=== PATIENT | female | born 1955 | race Caucasian/White ===

== ENCOUNTER 2022-12-14 12:05 | Emergency (ER) | payer MEDICARE, SELFPAY ==
[2022-12-14] VITALS (130 sets, daily range): BP systolic 110–204; BP diastolic 50–106; PULSE 55–96; RESP 14–42; TEMP 36.3; O2SAT 93–100; BMI 38.6
--- NOTE | 2022-12-14 12:15 | DI.RAD.S_ITS ---
PROCEDURE: XR CHEST 1V INDICATIONS: chest pain TECHNIQUE: One view of the chest was acquired. COMPARISON: None. FINDINGS: Surgical changes and devices: None. Lungs and pleura: Lungs are clear. No pleural effusions or pneumothorax. Mediastinum: Mediastinal contours appear normal. Heart size is normal. Bones and chest wall: No suspicious bony lesions. Overlying soft tissues appear unremarkable. IMPRESSION: Normal for age, source of current chest pain symptoms is not seen. Dictated by: Ismael Tamayo M.D. on 12/14/2022 at 13:00 Approved by: Ismael Tamayo M.D. on 12/14/2022 at 13:01
[2022-12-14] MEDS: ASPIRIN 81 MG CHEW TAB 324 MG PO (12:20)
[2022-12-14] MEDS: NITROGLYCERIN 0.4 MG SL TAB SL ×2 (12:21→14:34)
--- NOTE | 2022-12-14 12:25 | ED_ITS ---
HPI - Chest Pain <Kristen Addison DO - Last Filed: 12/19/22 02:06> General Chief Complaint: Chest Pain Stated Complaint: chest pressure/neck x2 hours Time Seen by Provider: 12/14/22 12:24 Source: patient Mode of arrival: Ambulatory Limitations: no limitations History of Present Illness HPI narrative: This is a 67-year-old female with history of hypothyroidism on oral estrogen, patient presents with complaint of substernal chest pressure and burning that started about 2 hours prior to arrival at 10:30 a.m.. Patient states she did not breakfast shortly thereafter she started getting a burning sensation she states it felt different than her usual reflux she did take some GERD. She sta jose it then started radiating from front to back, to her both arms felt very heavy left more so than right. Up to her jaw and shoulders. She states that it seemed to be persistent. Nothing seemed to exacerbate or alleviate it. She has felt short of breath with exertion recently for the past week or 2. She has not had any fevers, chills or cold cough or congestion. She had some nausea during this, no vomiting. No syncope or diaphoresis. She denies any swelling in her extremities. No dysuria, urgency or frequency. She states she takes a stool softener to help her up regular bowel movements but no new changes. She does note she has not seen a physician in several years. She does have a history of and hysterectomy. No known drug allergies. No tobacco, alcohol or illicit. Her dad of a heart attack at age 71 when he went into the hospital for surgery for diabetic complications. Her brother of an MA at age 78, her mom has hypertension. No known clot or embolic history in the family. No recent long-distance travel or sitting for long periods. Related Data Home Medications Medication Instructions Recorded Confirmed estradiol 0.5 mg tablet 0.5 mg PO 3XW 12/14/22 12/14/22 levothyroxine 50 mcg tablet 50 mcg PO QAM 12/14/22 12/14/22 Allergies Allergy/AdvReac Type Severity Reaction Status Date / Time No Known Drug Allergies Allergy Verified 12/14/22 12:16 Review of Systems <DO Melinda De La Garza Last Filed: 12/19/22 02:06> Review of Systems ROS Unobtainable: All systems reviewed & are unremarkable except as noted in HPI and below Patient History <Kristen Addison DO - Last Filed: 12/19/22 02:06> Social History Smoking Status: Never smoker Smoking Status: Never smoker alcohol intake frequency: 0-2 drinks per day Substance Use Type: does not use Exam <DO Melinda De La Garza Last Filed: 12/19/22 02:06> Narrative Exam Narrative: GENERAL: Alert and oriented x three, well-appearing female in mild distress. HEENT: Head normocephalic, atraumatic, EOMI, pupils reactive, face symmetric, moist mucous membranes NECK: Supple, full range of motion CARDIOVASCULAR: Regular rate and rhythm without murmurs, rubs or gallops. No reproducible chest pain. No JVD. No swelling bilateral lower extremities. RESPIRATORY: Breath sounds equal bilaterally, no wheezes rales or rhonchi. No tachypnea or accessory muscle use. ABDOMEN: Soft, nontender. Normoactive bowel sounds all 4 quadrants. No guarding or rebound, rigidity, no mass : No CVA tenderness EXTREMITIES: Normal range of motion, no clubbing or edema. Neurovascularly intact NEUROLOGICAL: Cranial nerves II through XII grossly intact. Moving all extremities SKIN: Warm, dry, no petechiae, no rashes or lesions. Initial Vital Signs Initial Vital Signs: Vital Signs Temperature 97.4 F L 12/14/22 12:05 Pulse Rate 81 12/14/22 12:05 Respiratory Rate 14 12/14/22 12:05 Blood Pressure 204/104 H 12/14/22 12:05 Pulse Oximetry 99 12/14/22 12:05 Oxygen Delivery Method Room Air 12/14/22 12:05 <Raul Garcia DO - Last Filed: 12/14/22 21:57> Initial Vital Signs Initial Vital Signs: Vital Signs Temperature 97.4 F L 12/14/22 12:05 Pulse Rate 81 12/14/22 12:05 Respiratory Rate 14 12/14/22 12:05 Blood Pressure 204/104 H 12/14/22 12:05 Pulse Oximetry 99 12/14/22 12:05 Oxygen Delivery Method Room Air 12/14/22 12:05 Course <DO Melinda De La Garza Last Filed: 12/19/22 02:06> Orders Ordered: Discontinued Medications Acetaminophen (Acetaminophen 325 Mg Tablet) 975 mg PO NOW ONE Stop: 12/14/22 19:51 Last Admin: 12/14/22 19:58 Dose: 975 mg Documented By: SB Aspirin (Aspirin 81 Mg Chew Tab) 324 mg PO NOW ONE Stop: 12/14/22 12:16 Last Admin: 12/14/22 12:20 Dose: 324 mg Documented By: RB Atorvastatin Calcium (Atorvastatin 20 Mg Tablet) 80 mg PO NOW ONE Stop: 12/14/22 16:56 Last Admin: 12/14/22 17:25 Dose: 80 mg Documented By: RB Heparin Sodium (Porcine) (Heparin 5,000 Unit/Ml Vial) 5,000 unit IV NOW ONE Stop: 12/14/22 16:56 Last Admin: 12/14/22 17:29 Dose: 5,000 unit Documented By: DELL Heparin Sodium/Dextrose (Heparin Drip) 25,000 unit in 500 mls @ 24.48 mls/hr IV CONT [facility]; Protocol Last Titration: 12/14/22 17:30 Dose: 9.8 units/kg/hr, 20 mls/hr Documented By: DELL Co-signed By: BIENVENIDO Admin: 12/14/22 17:30 Dose: 12 units/kg/hr, 24.48 mls/hr Documented By: DELL Co-signed By: BIENVENIDO Metoprolol Tartrate (Metoprolol Ir 25 Mg Tablet) 25 mg PO BID [facility] Last Admin: 12/14/22 22:10 Dose: 25 mg Documented By: AJ Nitroglycerin (Nitroglycerin 0.4 Mg Sl Tab) 0.4 mg SL [id number] PRN PRN Reason: Chest Pain Last Admin: 12/14/22 14:34 Dose: 0.4 mg Documented By: Admin: 12/14/22 12:21 Dose: 0.4 mg Documented By: DELL Nitroglycerin (Nitroglycerin Oint 1 Inch/Gm Oint...G.) 0.5 inch TOP NOW ONE Stop: 12/14/22 14:54 Last Admin: 12/14/22 15:05 Dose: 0.5 inch Documented By: DELL Vital Signs Vital signs: Vital Signs - 8 hr 12/14/22 14:34 12/14/22 14:29 12/14/22 14:29 Pulse Rate 70 73 Respiratory Rate 17 Blood Pressure 142/65 H 147/106 H Pulse Oximetry 99 Oxygen Delivery Method 12/14/22 14:30 12/14/22 14:31 12/14/22 14:31 Pulse Rate 73 71 Respiratory Rate 20 29 H Blood Pressure 142/65 H Pulse Oximetry 99 97 Oxygen Delivery Method Room Air 12/14/22 14:35 12/14/22 14:40 12/14/22 14:40 Pulse Rate 71 75 Respiratory Rate 28 H 26 H Blood Pressure 113/55 L Pulse Oximetry 97 95 Oxygen Delivery Method 12/14/22 14:45 12/14/22 14:50 12/14/22 14:51 Pulse Rate 73 65 Respiratory Rate 37 H 22 Blood Pressure 151/65 H Pulse Oximetry 93 96 Oxygen Delivery Method 12/14/22 14:51 12/14/22 15:05 12/14/22 14:55 Pulse Rate 65 61 64 Respiratory Rate 28 H 22 Blood Pressure 130/50 L Pulse Oximetry 95 95 Oxygen Delivery Method Room Air 12/14/22 15:00 12/14/22 15:00 12/14/22 15:05 Pulse Rate 61 61 Respiratory Rate 22 24 Blood Pressure 130/50 L Pulse Oximetry 98 98 Oxygen Delivery Method 12/14/22 15:10 12/14/22 15:10 12/14/22 15:15 Pulse Rate 60 63 Respiratory Rate 23 41 H Blood Pressure 124/59 L Pulse Oximetry 97 97 Oxygen Delivery Method 12/14/22 15:20 12/14/22 15:20 12/14/22 15:25 Pulse Rate 58 L 64 Respiratory Rate 20 24 Blood Pressure 126/60 Pulse Oximetry 97 98 Oxygen Delivery Method 12/14/22 15:30 12/14/22 15:30 12/14/22 15:35 Pulse Rate 60 60 Respiratory Rate 25 H 21 Blood Pressure 117/59 L Pulse Oximetry 97 98 Oxygen Delivery Method 12/14/22 15:40 12/14/22 15:40 12/14/22 15:45 Pulse Rate 58 L 62 Respiratory Rate 16 19 Blood Pressure 117/61 Pulse Oximetry 99 98 Oxygen Delivery Method Room Air 12/14/22 15:50 12/14/22 15:50 12/14/22 15:55 Pulse Rate 58 L 64 Respiratory Rate 21 Blood Pressure 129/62 Pulse Oximetry 99 97 Oxygen Delivery Method 12/14/22 16:00 12/14/22 16:00 12/14/22 16:05 Pulse Rate 62 59 L Respiratory Rate 22 23 Blood Pressure 127/65 Pulse Oximetry 99 98 Oxygen Delivery Method 12/14/22 16:10 12/14/22 16:10 12/14/22 16:15 Pulse Rate 55 L 57 L Respiratory Rate 24 20 Blood Pressure 127/59 L Pulse Oximetry 96 98 Oxygen Delivery Method 12/14/22 16:20 12/14/22 16:20 12/14/22 16:25 Pulse Rate 62 75 Respiratory Rate Blood Pressure 126/68 Pulse Oximetry 98 98 Oxygen Delivery Method 12/14/22 16:30 12/14/22 16:31 12/14/22 16:31 Pulse Rate 64 64 Respiratory Rate 22 25 H Blood Pressure 116/81 Pulse Oximetry 98 95 Oxygen Delivery Method 12/14/22 16:39 12/14/22 16:40 12/14/22 16:41 Pulse Rate 74 63 65 Respiratory Rate 19 18 Blood Pressure Pulse Oximetry 100 97 100 Oxygen Delivery Method 12/14/22 16:41 12/14/22 16:45 12/14/22 16:50 Pulse Rate 68 Respiratory Rate 20 Blood Pressure 132/59 L 126/62 Pulse Oximetry 98 Oxygen Delivery Method 12/14/22 16:50 12/14/22 16:55 12/14/22 17:00 Pulse Rate 69 66 Respiratory Rate 24 22 Blood Pressure 125/63 Pulse Oximetry 99 99 Oxygen Delivery Method 12/14/22 17:00 12/14/22 17:05 12/14/22 17:10 Pulse Rate 65 70 64 Respiratory Rate 23 21 Blood Pressure Pulse Oximetry 97 95 100 Oxygen Delivery Method 12/14/22 17:15 12/14/22 17:20 12/14/22 17:25 Pulse Rate 64 64 62 Respiratory Rate 24 23 22 Blood Pressure Pulse Oximetry 99 98 98 Oxygen Delivery Method 12/14/22 17:30 12/14/22 17:35 12/14/22 17:40 Pulse Rate 65 60 61 Respiratory Rate Blood Pressure Pulse Oximetry 99 98 99 Oxygen Delivery Method 12/14/22 17:45 12/14/22 17:50 12/14/22 17:50 Pulse Rate 62 62 Respiratory Rate Blood Pressure 140/67 Pulse Oximetry 99 99 Oxygen Delivery Method 12/14/22 17:55 12/14/22 18:00 12/14/22 18:05 Pulse Rate 60 61 62 Respiratory Rate Blood Pressure Pulse Oximetry 99 99 Oxygen Delivery Method 12/14/22 18:10 12/14/22 18:15 12/14/22 18:20 Pulse Rate 59 L 56 L 60 Respiratory Rate 23 26 H Blood Pressure Pulse Oximetry 99 99 99 Oxygen Delivery Method 12/14/22 18:25 12/14/22 18:30 12/14/22 18:35 Pulse Rate 62 67 66 Respiratory Rate 27 H 22 31 H Blood Pressure Pulse Oximetry 94 97 96 Oxygen Delivery Method 12/14/22 18:36 12/14/22 18:36 12/14/22 18:37 Pulse Rate 66 65 Respiratory Rate 29 H 26 H Blood Pressure 149/75 H Pulse Oximetry 97 96 Oxygen Delivery Method 12/14/22 18:37 12/14/22 18:40 12/14/22 18:40 Pulse Rate 66 Respiratory Rate 23 Blood Pressure 167/83 H 163/89 H Pulse Oximetry 95 Oxygen Delivery Method 12/14/22 18:45 12/14/22 18:50 12/14/22 18:50 Pulse Rate 71 69 Respiratory Rate 20 33 H Blood Pressure 160/85 H Pulse Oximetry 95 95 Oxygen Delivery Method 12/14/22 18:55 12/14/22 19:00 12/14/22 19:00 Pulse Rate 64 67 Respiratory Rate 31 H 21 Blood Pressure 152/85 H Pulse Oximetry 97 96 Oxygen Delivery Method 12/14/22 19:05 12/14/22 19:10 12/14/22 19:10 Pulse Rate 62 66 Respiratory Rate 22 37 H Blood Pressure 133/91 H Pulse Oximetry 95 97 Oxygen Delivery Method 12/14/22 19:15 12/14/22 19:20 12/14/22 19:20 Pulse Rate 64 61 Respiratory Rate 36 H 29 H Blood Pressure 158/73 H Pulse Oximetry 96 97 Oxygen Delivery Method 12/14/22 19:25 12/14/22 19:30 12/14/22 19:30 Pulse Rate 60 59 L Respiratory Rate 28 H 16 Blood Pressure 146/73 H Pulse Oximetry 95 97 Oxygen Delivery Method 12/14/22 19:35 12/14/22 19:40 12/14/22 19:41 Pulse Rate 64 66 64 Respiratory Rate 25 H 29 H 28 H Blood Pressure Pulse Oximetry 96 97 95 Oxygen Delivery Method 12/14/22 19:41 12/14/22 19:45 12/14/22 19:50 Pulse Rate 63 Respiratory Rate 20 Blood Pressure 163/76 H 137/63 Pulse Oximetry 96 Oxygen Delivery Method 12/14/22 19:50 12/14/22 19:55 12/14/22 20:00 Pulse Rate 61 61 Respiratory Rate 30 H 23 Blood Pressure 141/77 H Pulse Oximetry 96 96 Oxygen Delivery Method 12/14/22 20:00 12/14/22 20:05 12/14/22 20:10 Pulse Rate 74 62 Respiratory Rate 35 H 23 Blood Pressure 145/69 H Pulse Oximetry 97 99 Oxygen Delivery Method 12/14/22 20:10 12/14/22 20:15 12/14/22 20:20 Pulse Rate 62 62 64 Respiratory Rate 24 29 H 38 H Blood Pressure Pulse Oximetry 97 97 99 Oxygen Delivery Method 12/14/22 20:21 12/14/22 20:21 12/14/22 20:25 Pulse Rate 61 61 Respiratory Rate 24 31 H Blood Pressure 148/63 H Pulse Oximetry 97 97 Oxygen Delivery Method 12/14/22 20:30 12/14/22 20:30 12/14/22 20:35 Pulse Rate 64 65 Respiratory Rate 23 28 H Blood Pressure 134/59 L Pulse Oximetry 95 98 Oxygen Delivery Method 12/14/22 20:40 12/14/22 20:40 12/14/22 20:45 Pulse Rate 63 64 Respiratory Rate 30 H 25 H Blood Pressure 136/64 Pulse Oximetry 96 96 Oxygen Delivery Method 12/14/22 20:50 12/14/22 20:50 12/14/22 20:55 Pulse Rate 66 65 Respiratory Rate 26 H 28 H Blood Pressure 136/66 Pulse Oximetry 95 96 Oxygen Delivery Method 12/14/22 21:00 12/14/22 21:00 12/14/22 21:05 Pulse Rate 64 65 Respiratory Rate 33 H 27 H Blood Pressure 110/59 L Pulse Oximetry 96 96 Oxygen Delivery Method 12/14/22 21:10 12/14/22 21:11 12/14/22 21:11 Pulse Rate 61 63 Respiratory Rate 32 H 38 H Blood Pressure 133/66 Pulse Oximetry 96 96 Oxygen Delivery Method 12/14/22 21:15 12/14/22 21:25 12/14/22 21:30 Pulse Rate 60 77 62 Respiratory Rate 34 H 14 22 Blood Pressure Pulse Oximetry 95 95 Oxygen Delivery Method 12/14/22 21:35 12/14/22 21:40 Pulse Rate 65 62 Respiratory Rate 24 27 H Blood Pressure Pulse Oximetry 95 96 Oxygen Delivery Method <Raul Garcia, - Last Filed: 12/14/22 21:57> Orders Ordered: Discontinued Medications Acetaminophen (Acetaminophen 325 Mg Tablet) 975 mg PO NOW ONE Stop: 12/14/22 19:51 Last Admin: 12/14/22 19:58 Dose: 975 mg Documented By: SB Aspirin (Aspirin 81 Mg Chew Tab) 324 mg PO NOW ONE Stop: 12/14/22 12:16 Last Admin: 12/14/22 12:20 Dose: 324 mg Documented By: RB Atorvastatin Calcium (Atorvastatin 20 Mg Tablet) 80 mg PO NOW ONE Stop: 12/14/22 16:56 Last Admin: 12/14/22 17:25 Dose: 80 mg Documented By: RB Heparin Sodium (Porcine) (Heparin 5,000 Unit/Ml Vial) 5,000 unit IV NOW ONE Stop: 12/14/22 16:56 Last Admin: 12/14/22 17:29 Dose: 5,000 unit Documented By: RB Heparin Sodium/Dextrose (Heparin Drip) 25,000 unit in 500 mls @ 24.48 mls/hr IV CONT [facility]; Protocol Last Titration: 12/14/22 17:30 Dose: 9.8 units/kg/hr, 20 mls/hr Documented By: DELL Co-signed By: BIENVENIDO Admin: 12/14/22 17:30 Dose: 12 units/kg/hr, 24.48 mls/hr Documented By: RB Co-signed By: BIENVENIDO Metoprolol Tartrate (Metoprolol Ir 25 Mg Tablet) 25 mg PO BID [facility] Last Admin: 12/14/22 22:10 Dose: 25 mg Documented By: AJ Nitroglycerin (Nitroglycerin 0.4 Mg Sl Tab) 0.4 mg SL [id number] PRN PRN Reason: Chest Pain Last Admin: 12/14/22 14:34 Dose: 0.4 mg Documented By: Admin: 12/14/22 12:21 Dose: 0.4 mg Documented By: RB Nitroglycerin (Nitroglycerin Oint 1 Inch/Gm Oint...G.) 0.5 inch TOP NOW ONE Stop: 12/14/22 14:54 Last Admin: 12/14/22 15:05 Dose: 0.5 inch Documented By: DELL Vital Signs Vital signs: Vital Signs - 8 hr 12/14/22 14:34 12/14/22 14:29 12/14/22 14:29 Pulse Rate 70 73 Respiratory Rate 17 Blood Pressure 142/65 H 147/106 H Pulse Oximetry 99 Oxygen Delivery Method 12/14/22 14:30 12/14/22 14:31 12/14/22 14:31 Pulse Rate 73 71 Respiratory Rate 20 29 H Blood Pressure 142/65 H Pulse Oximetry 99 97 Oxygen Delivery Method Room Air 12/14/22 14:35 12/14/22 14:40 12/14/22 14:40 Pulse Rate 71 75 Respiratory Rate 28 H 26 H Blood Pressure 113/55 L Pulse Oximetry 97 95 Oxygen Delivery Method 12/14/22 14:45 12/14/22 14:50 12/14/22 14:51 Pulse Rate 73 65 Respiratory Rate 37 H 22 Blood Pressure 151/65 H Pulse Oximetry 93 96 Oxygen Delivery Method 12/14/22 14:51 12/14/22 15:05 12/14/22 14:55 Pulse Rate 65 61 64 Respiratory Rate 28 H 22 Blood Pressure 130/50 L Pulse Oximetry 95 95 Oxygen Delivery Method Room Air 12/14/22 15:00 12/14/22 15:00 12/14/22 15:05 Pulse Rate 61 61 Respiratory Rate 22 24 Blood Pressure 130/50 L Pulse Oximetry 98 98 Oxygen Delivery Method 12/14/22 15:10 12/14/22 15:10 12/14/22 15:15 Pulse Rate 60 63 Respiratory Rate 23 41 H Blood Pressure 124/59 L Pulse Oximetry 97 97 Oxygen Delivery Method 12/14/22 15:20 12/14/22 15:20 12/14/22 15:25 Pulse Rate 58 L 64 Respiratory Rate 20 24 Blood Pressure 126/60 Pulse Oximetry 97 98 Oxygen Delivery Method 12/14/22 15:30 12/14/22 15:30 12/14/22 15:35 Pulse Rate 60 60 Respiratory Rate 25 H 21 Blood Pressure 117/59 L Pulse Oximetry 97 98 Oxygen Delivery Method 12/14/22 15:40 12/14/22 15:40 12/14/22 15:45 Pulse Rate 58 L 62 Respiratory Rate 16 19 Blood Pressure 117/61 Pulse Oximetry 99 98 Oxygen Delivery Method Room Air 12/14/22 15:50 12/14/22 15:50 12/14/22 15:55 Pulse Rate 58 L 64 Respiratory Rate 21 Blood Pressure 129/62 Pulse Oximetry 99 97 Oxygen Delivery Method 12/14/22 16:00 12/14/22 16:00 12/14/22 16:05 Pulse Rate 62 59 L Respiratory Rate 22 23 Blood Pressure 127/65 Pulse Oximetry 99 98 Oxygen Delivery Method 12/14/22 16:10 12/14/22 16:10 12/14/22 16:15 Pulse Rate 55 L 57 L Respiratory Rate 24 20 Blood Pressure 127/59 L Pulse Oximetry 96 98 Oxygen Delivery Method 12/14/22 16:20 12/14/22 16:20 12/14/22 16:25 Pulse Rate 62 75 Respiratory Rate Blood Pressure 126/68 Pulse Oximetry 98 98 Oxygen Delivery Method 12/14/22 16:30 12/14/22 16:31 12/14/22 16:31 Pulse Rate 64 64 Respiratory Rate 22 25 H Blood Pressure 116/81 Pulse Oximetry 98 95 Oxygen Delivery Method 12/14/22 16:39 12/14/22 16:40 12/14/22 16:41 Pulse Rate 74 63 65 Respiratory Rate 19 18 Blood Pressure Pulse Oximetry 100 97 100 Oxygen Delivery Method 12/14/22 16:41 12/14/22 16:45 12/14/22 16:50 Pulse Rate 68 Respiratory Rate 20 Blood Pressure 132/59 L 126/62 Pulse Oximetry 98 Oxygen Delivery Method 12/14/22 16:50 12/14/22 16:55 12/14/22 17:00 Pulse Rate 69 66 Respiratory Rate 24 22 Blood Pressure 125/63 Pulse Oximetry 99 99 Oxygen Delivery Method 12/14/22 17:00 12/14/22 17:05 12/14/22 17:10 Pulse Rate 65 70 64 Respiratory Rate 23 21 Blood Pressure Pulse Oximetry 97 95 100 Oxygen Delivery Method 12/14/22 17:15 12/14/22 17:20 12/14/22 17:25 Pulse Rate 64 64 62 Respiratory Rate 24 23 22 Blood Pressure Pulse Oximetry 99 98 98 Oxygen Delivery Method 12/14/22 17:30 12/14/22 17:35 12/14/22 17:40 Pulse Rate 65 60 61 Respiratory Rate Blood Pressure Pulse Oximetry 99 98 99 Oxygen Delivery Method 12/14/22 17:45 12/14/22 17:50 12/14/22 17:50 Pulse Rate 62 62 Respiratory Rate Blood Pressure 140/67 Pulse Oximetry 99 99 Oxygen Delivery Method 12/14/22 17:55 12/14/22 18:00 12/14/22 18:05 Pulse Rate 60 61 62 Respiratory Rate Blood Pressure Pulse Oximetry 99 99 Oxygen Delivery Method 12/14/22 18:10 12/14/22 18:15 12/14/22 18:20 Pulse Rate 59 L 56 L 60 Respiratory Rate 23 26 H Blood Pressure Pulse Oximetry 99 99 99 Oxygen Delivery Method 12/14/22 18:25 12/14/22 18:30 12/14/22 18:35 Pulse Rate 62 67 66 Respiratory Rate 27 H 22 31 H Blood Pressure Pulse Oximetry 94 97 96 Oxygen Delivery Method 12/14/22 18:36 12/14/22 18:36 12/14/22 18:37 Pulse Rate 66 65 Respiratory Rate 29 H 26 H Blood Pressure 149/75 H Pulse Oximetry 97 96 Oxygen Delivery Method 12/14/22 18:37 12/14/22 18:40 12/14/22 18:40 Pulse Rate 66 Respiratory Rate 23 Blood Pressure 167/83 H 163/89 H Pulse Oximetry 95 Oxygen Delivery Method 12/14/22 18:45 12/14/22 18:50 12/14/22 18:50 Pulse Rate 71 69 Respiratory Rate 20 33 H Blood Pressure 160/85 H Pulse Oximetry 95 95 Oxygen Delivery Method 12/14/22 18:55 12/14/22 19:00 12/14/22 19:00 Pulse Rate 64 67 Respiratory Rate 31 H 21 Blood Pressure 152/85 H Pulse Oximetry 97 96 Oxygen Delivery Method 12/14/22 19:05 12/14/22 19:10 12/14/22 19:10 Pulse Rate 62 66 Respiratory Rate 22 37 H Blood Pressure 133/91 H Pulse Oximetry 95 97 Oxygen Delivery Method 12/14/22 19:15 12/14/22 19:20 12/14/22 19:20 Pulse Rate 64 61 Respiratory Rate 36 H 29 H Blood Pressure 158/73 H Pulse Oximetry 96 97 Oxygen Delivery Method 12/14/22 19:25 12/14/22 19:30 12/14/22 19:30 Pulse Rate 60 59 L Respiratory Rate 28 H 16 Blood Pressure 146/73 H Pulse Oximetry 95 97 Oxygen Delivery Method 12/14/22 19:35 12/14/22 19:40 12/14/22 19:41 Pulse Rate 64 66 64 Respiratory Rate 25 H 29 H 28 H Blood Pressure Pulse Oximetry 96 97 95 Oxygen Delivery Method 12/14/22 19:41 12/14/22 19:45 12/14/22 19:50 Pulse Rate 63 Respiratory Rate 20 Blood Pressure 163/76 H 137/63 Pulse Oximetry 96 Oxygen Delivery Method 12/14/22 19:50 12/14/22 19:55 12/14/22 20:00 Pulse Rate 61 61 Respiratory Rate 30 H 23 Blood Pressure 141/77 H Pulse Oximetry 96 96 Oxygen Delivery Method 12/14/22 20:00 12/14/22 20:05 12/14/22 20:10 Pulse Rate 74 62 Respiratory Rate 35 H 23 Blood Pressure 145/69 H Pulse Oximetry 97 99 Oxygen Delivery Method 12/14/22 20:10 12/14/22 20:15 12/14/22 20:20 Pulse Rate 62 62 64 Respiratory Rate 24 29 H 38 H Blood Pressure Pulse Oximetry 97 97 99 Oxygen Delivery Method 12/14/22 20:21 12/14/22 20:21 12/14/22 20:25 Pulse Rate 61 61 Respiratory Rate 24 31 H Blood Pressure 148/63 H Pulse Oximetry 97 97 Oxygen Delivery Method 12/14/22 20:30 12/14/22 20:30 12/14/22 20:35 Pulse Rate 64 65 Respiratory Rate 23 28 H Blood Pressure 134/59 L Pulse Oximetry 95 98 Oxygen Delivery Method 12/14/22 20:40 12/14/22 20:40 12/14/22 20:45 Pulse Rate 63 64 Respiratory Rate 30 H 25 H Blood Pressure 136/64 Pulse Oximetry 96 96 Oxygen Delivery Method 12/14/22 20:50 12/14/22 20:50 12/14/22 20:55 Pulse Rate 66 65 Respiratory Rate 26 H 28 H Blood Pressure 136/66 Pulse Oximetry 95 96 Oxygen Delivery Method 12/14/22 21:00 12/14/22 21:00 12/14/22 21:05 Pulse Rate 64 65 Respiratory Rate 33 H 27 H Blood Pressure 110/59 L Pulse Oximetry 96 96 Oxygen Delivery Method 12/14/22 21:10 12/14/22 21:11 12/14/22 21:11 Pulse Rate 61 63 Respiratory Rate 32 H 38 H Blood Pressure 133/66 Pulse Oximetry 96 96 Oxygen Delivery Method 12/14/22 21:15 12/14/22 21:25 12/14/22 21:30 Pulse Rate 60 77 62 Respiratory Rate 34 H 14 22 Blood Pressure Pulse Oximetry 95 95 Oxygen Delivery Method 12/14/22 21:35 12/14/22 21:40 Pulse Rate 65 62 Respiratory Rate 24 27 H Blood Pressure Pulse Oximetry 95 96 Oxygen Delivery Method MDM - Chest Pain <Kristen Addison, - Last Filed: 12/19/22 02:06> Lab Data 12/14/22 12:20 12/14/22 12:20 Labs: Lab Results 12/14/22 12/14/22 12/14/22 Range/Units 11:20 12:20 12:20 WBC 8.6 (4.5-11.0) X10^3/uL RBC 4.36 (4.0-5.2) X10^6/uL Hgb 14.2 (12.0-16.0) g/dL Hct 41.7 (36-46) % MCV 95.6 (80-100) fL MCH 32.6 (26-34) PG MCHC 34.1 (30-36) % RDW 13.3 (11.6-14.8) % Plt Count 275 (150-400) X10^3/uL Neut % (Auto) 57.6 (50-75) % Lymph % (Auto) 29.9 (25-40) % [place] % (Auto) 9.0 (3-14) % Eos % (Auto) 2.1 (2-4) % Baso % (Auto) 1.4 (0-2) % Neut # (Auto) 5000 (9164-7299) /uL Lymph # (Auto) 2600 (1871-7533) /uL [place] # (Auto) 800 (0-900) /uL Eos # (Auto) 200 (0-450) /uL Baso # (Auto) 100 (0-100) /uL PT 11.1 (10.1-12.7) SECONDS INR 1.0 (0.9-1.3) APTT 29 (26-36) SECONDS D-Dimer 780 H (<500) ng/ml Sodium (137-145) mmol/L Potassium (3.4-5.1) mmol/L Chloride (98-107) mmol/L Carbon Dioxide (22-32) mmol/L BUN (7-17) mg/dL Creatinine (0.52-1.04) mg/dL Estimated GFR (>60) mL/min BUN/Creatinine Ratio (6-22) Glucose (80-110) mg/dL Calcium (8.4-10.2) mg/dL Magnesium (1.6-2.3) mg/dL Total Bilirubin (0.2-1.3) mg/dL AST (14-36) IU/L ALT (<35) IU/L Alkaline Phosphatase (38-126) U/L Total Creatine Kinase (30-135) U/L CK-MB (CK-2) CK-MB (CK-2) Rel Index Troponin I (0.01-0.034) ng/mL NT-Pro-B Natriuret Pep (<125) pg/mL Total Protein (6.3-8.2) g/dL Albumin (3.5-5.0) g/dL Globulin (1.7-4.1) g/dL Albumin/Globulin Ratio (1.0-2.8) Lipase (23-300) U/L Ur Bilirubin Confirm (Negative) Urine RBC (0-5/HPF) Urine WBC (0-5/HPF) Ur Squamous Epith Cells (0-5/HPF) Urine Bacteria (None) Ur Culture Indicated? SARS-CoV-2 (PCR) (Negative) 12/14/22 12/14/22 12/14/22 Range/Units 12:20 12:20 13:00 WBC (4.5-11.0) X10^3/uL RBC (4.0-5.2) X10^6/uL Hgb (12.0-16.0) g/dL Hct (36-46) % MCV (80-100) fL MCH (26-34) PG MCHC (30-36) % RDW (11.6-14.8) % Plt Count (150-400) X10^3/uL Neut % (Auto) (50-75) % Lymph % (Auto) (25-40) % [place] % (Auto) (3-14) % Eos % (Auto) (2-4) % Baso % (Auto) (0-2) % Neut # (Auto) (6619-2840) /uL Lymph # (Auto) (4490-1679) /uL [place] # (Auto) (0-900) /uL Eos # (Auto) (0-450) /uL Baso # (Auto) (0-100) /uL PT (10.1-12.7) SECONDS INR (0.9-1.3) APTT (26-36) SECONDS D-Dimer (<500) ng/ml Sodium 140 (137-145) mmol/L Potassium 3.4 (3.4-5.1) mmol/L Chloride 103 (98-107) mmol/L Carbon Dioxide 30 (22-32) mmol/L BUN 14 (7-17) mg/dL Creatinine 1.08 H (0.52-1.04) mg/dL Estimated GFR 56 L (>60) mL/min BUN/Creatinine Ratio 13.0 (6-22) Glucose 103 (80-110) mg/dL Calcium 9.3 (8.4-10.2) mg/dL Magnesium 2.0 (1.6-2.3) mg/dL Total Bilirubin 0.4 (0.2-1.3) mg/dL AST 33 (14-36) IU/L ALT 32 (<35) IU/L Alkaline Phosphatase 75 (38-126) U/L Total Creatine Kinase 246 H (30-135) U/L CK-MB (CK-2) TNP CK-MB (CK-2) Rel Index TNP Troponin I < 0.012 (0.01-0.034) ng/mL NT-Pro-B Natriuret Pep 42 (<125) pg/mL Total Protein 8.0 (6.3-8.2) g/dL Albumin 4.6 (3.5-5.0) g/dL Globulin 3.4 (1.7-4.1) g/dL Albumin/Globulin Ratio 1.4 (1.0-2.8) Lipase 117 (23-300) U/L Ur Bilirubin Confirm (Negative) Urine RBC (0-5/HPF) Urine WBC (0-5/HPF) Ur Squamous Epith Cells (0-5/HPF) Urine Bacteria (None) Ur Culture Indicated? SARS-CoV-2 (PCR) Negative (Negative) 12/14/22 12/14/22 12/14/22 Range/Units 14:40 15:34 15:34 WBC (4.5-11.0) X10^3/uL RBC (4.0-5.2) X10^6/uL Hgb (12.0-16.0) g/dL Hct (36-46) % MCV (80-100) fL MCH (26-34) PG MCHC (30-36) % RDW (11.6-14.8) % Plt Count (150-400) X10^3/uL Neut % (Auto) (50-75) % Lymph % (Auto) (25-40) % [place] % (Auto) (3-14) % Eos % (Auto) (2-4) % Baso % (Auto) (0-2) % Neut # (Auto) (1393-7584) /uL Lymph # (Auto) (9501-6468) /uL [place] # (Auto) (0-900) /uL Eos # (Auto) (0-450) /uL Baso # (Auto) (0-100) /uL PT (10.1-12.7) SECONDS INR (0.9-1.3) APTT (26-36) SECONDS D-Dimer (<500) ng/ml Sodium (137-145) mmol/L Potassium (3.4-5.1) mmol/L Chloride (98-107) mmol/L Carbon Dioxide (22-32) mmol/L BUN (7-17) mg/dL Creatinine (0.52-1.04) mg/dL Estimated GFR (>60) mL/min BUN/Creatinine Ratio (6-22) Glucose (80-110) mg/dL Calcium (8.4-10.2) mg/dL Magnesium (1.6-2.3) mg/dL Total Bilirubin (0.2-1.3) mg/dL AST (14-36) IU/L ALT (<35) IU/L Alkaline Phosphatase (38-126) U/L Total Creatine Kinase (30-135) U/L CK-MB (CK-2) CK-MB (CK-2) Rel Index Troponin I < 0.012 (0.01-0.034) ng/mL NT-Pro-B Natriuret Pep (<125) pg/mL Total Protein (6.3-8.2) g/dL Albumin (3.5-5.0) g/dL Globulin (1.7-4.1) g/dL Albumin/Globulin Ratio (1.0-2.8) Lipase (23-300) U/L Ur Bilirubin Confirm Negative (Negative) Urine RBC 0-1/hpf (0-5/HPF) Urine WBC 0-1/hpf (0-5/HPF) Ur Squamous Epith Cells 0-1 /hpf (0-5/HPF) Urine Bacteria None seen (None) Ur Culture Indicated? Cult not indicated SARS-CoV-2 (PCR) (Negative) 12/14/22 12/14/22 Range/Units 17:23 22:47 WBC (4.5-11.0) X10^3/uL RBC (4.0-5.2) X10^6/uL Hgb (12.0-16.0) g/dL Hct (36-46) % MCV (80-100) fL MCH (26-34) PG MCHC (30-36) % RDW (11.6-14.8) % Plt Count (150-400) X10^3/uL Neut % (Auto) (50-75) % Lymph % (Auto) (25-40) % [place] % (Auto) (3-14) % Eos % (Auto) (2-4) % Baso % (Auto) (0-2) % Neut # (Auto) (7514-5530) /uL Lymph # (Auto) (0460-8923) /uL [place] # (Auto) (0-900) /uL Eos # (Auto) (0-450) /uL Baso # (Auto) (0-100) /uL PT (10.1-12.7) SECONDS INR (0.9-1.3) APTT 25 L 94 H* D (26-36) SECONDS D-Dimer (<500) ng/ml Sodium (137-145) mmol/L Potassium (3.4-5.1) mmol/L Chloride (98-107) mmol/L Carbon Dioxide (22-32) mmol/L BUN (7-17) mg/dL Creatinine (0.52-1.04) mg/dL Estimated GFR (>60) mL/min BUN/Creatinine Ratio (6-22) Glucose (80-110) mg/dL Calcium (8.4-10.2) mg/dL Magnesium (1.6-2.3) mg/dL Total Bilirubin (0.2-1.3) mg/dL AST (14-36) IU/L ALT (<35) IU/L Alkaline Phosphatase (38-126) U/L Total Creatine Kinase (30-135) U/L CK-MB (CK-2) CK-MB (CK-2) Rel Index Troponin I (0.01-0.034) ng/mL NT-Pro-B Natriuret Pep (<125) pg/mL Total Protein (6.3-8.2) g/dL Albumin (3.5-5.0) g/dL Globulin (1.7-4.1) g/dL Albumin/Globulin Ratio (1.0-2.8) Lipase (23-300) U/L Ur Bilirubin Confirm (Negative) Urine RBC (0-5/HPF) Urine WBC (0-5/HPF) Ur Squamous Epith Cells (0-5/HPF) Urine Bacteria (None) Ur Culture Indicated? SARS-CoV-2 (PCR) (Negative) Urine Dip Bedside Urine Glucose Negative Bedside Urine Bilirubin + 1 Bedside Urine Ketone - Negative Urine Specific [place] 1.025 Bedside Urine Occult Blood - Negative Bedside Urine pH 6 Bedside Urine Protein +/- 15 Bedside Urine Urobilinogen - Negative Bedside Urine Nitrite - Negative Bedside Urine Leukocytes - Negative Esterase Imaging Data Chest x-ray: Radiologist's Impression: Close Chest CTA (Signed) Sukhwinder Joshua - 12/14/22 Chest X-Ray (Signed) Ismael Tamayo - 12/14/22 Launch?[address] [address] XRay Report Signed Patient: Marnie Crain MR#: [id number] : 1955 Acct:[id number] Age/Sex: 67 / F Date of Service: 12/14/22 Loc: ED Accession Number: [id number] ?? Procedure: XR chest 1V Ordering Provider: Kristen Addison D.O. PROCEDURE:? XR CHEST 1V ? INDICATIONS:? chest pain ? TECHNIQUE:? One view of the chest was acquired.? ? COMPARISON:? None. ? FINDINGS:? ? Surgical changes and devices:? None.? ? Lungs and pleura:? Lungs are clear.? No pleural effusions or pneumothorax.? ? Mediastinum:? Mediastinal contours appear normal.? Heart size is normal.? ? Bones and chest wall:? No suspicious bony lesions.? Overlying soft tissues appear unremarkable.? ? IMPRESSION:? Normal for age, source of current chest pain symptoms is not seen. ? ? Dictated by: Ismael Tamayo M.D. on 12/14/2022 at 13:00 ? ? Approved by: Ismael Tamayo M.D. on 12/14/2022 at 13:01?? CT scan - chest: Radiologist's Impression: Marnie Crain??67??F??1955 ? Allergy/Adv: No Known Drug Allergies (More??) Close Chest CTA (Signed) Sukhwinder Joshua - 12/14/22 Chest X-Ray (Signed) Ismael Tamayo - 12/14/22 Launch?[place] [address] CT Scan Report Signed Patient: Marnie Crain MR#: [id number] : 1955 Acct:[id number] Age/Sex: 67 / F Date of Service: 12/14/22 Loc: Accession Number: [id number] ?? Procedure: CT angio chest PE protocol Ordering Provider: Kristen Addison D.O. PROCEDURE:? CT ANGIO CHEST PE PROTOCOL ? INDICATIONS:? chest pain, elevateddimer ? TECHNIQUE:? After the administration of intravenous contrast, 2 mm thick sections acquired from the pulmonary apices to the posterior costophrenic angles.? 3-dimensional maximum intensity projection (MIP) coronal and sagittal reformats were then acquired through the thorax.? For radiation dose reduction, the following was used:? automated exposure control, adjustment of mA and/or kV according to patient size.? ? COMPARISON:? None. ? FINDINGS:? Image quality:? Excellent.? ? Pulmonary arteries:? Pulmonary arteries are normal in size, and demonstrate no intraluminal filling defects to suggest central pulmonary embolism.? ? Lungs and pleura:? Lungs are clear.? 4 mm pulmonary nodule, extreme right lung base, image 191/5.? No pleural effusions or pneumothorax.? Central and peripheral airways are patent.? ? Mediastinum:? Heart size is normal, without pericardial effusion.? No mediastinal or hilar adenopathy.? Thoracic aorta is top normal in caliber, measuring 4.0 cm. Esophagus is normal in caliber, without hiatal hernia.? ? Bones and chest wall:? No suspicious bony lesions.? Ribs and thoracic spine appear intact throughout.? Thyroid gland is unremarkable.? No axillary or supraclavicular adenopathy.? ? Abdomen:? Visualized upper abdominal solid organs appear normal in the early arterial phase of enhancement.? ? IMPRESSION:? ? 1. No evidence acute pulmonary emboli. ? 2. No evidence acute pulmonary process. ? 3. Borderline aneurysmal dilatation of the ascending aorta, measuring 4.0 cm. ? 4. 4 mm pulmonary nodule, extreme right lung base.? Please see chart below for follow-up recommendations. ? Fleischner Society criteria for SOLID lung nodule followup.? Nodule size (mm)Low-risk patientHigh-risk patient<6 (single or multiple)No routine followup.Optional CT at 12 months. 6-8 (single or multiple)CT at 6-12 months, then optional CT at 18-24 mo.CT at 6-12 months, then CT at 18-24 months.? >8 (single)CT at 3 months, PET-CT, or biopsy. Same as for low-risk pts.? >8 (multiple)CT at 3-6 months, then optional CT at 18-24 mo.CT at 3-6 months, then CT at 18-24 months.? Fleischner Society criteria for SUB-SOLID lung nodule followup.? Solitary pure ground-glass nodules<6 mm (ground glass or part solid)No followup needed.? 6 mm or larger (ground glass)CT at 6-12 months to confirm persistence, then CT every 2 years until 5 years.6 mm or larger (part solid)CT at 3-6 months to confirm persistence, then annual CT until 5 years if unchanged and solid component remains <6 mm.? Multiple sub-solid nodules<6 mmCT at 3-6 months, then CT consider at 2 & 4 years for high risk patients. [address] or [address] at 3-6 months. Subsequent management based on most suspicious lesions. Recommendations do not apply to lung cancer screening, patients with immunosuppression, or patients with known primary cancer. ? ? ? Dictated by: Sukhwinder Joshua M.D. on 12/14/2022 at 14:08 ? ? Approved by: Sukhwinder Joshua M.D. on 12/14/2022 at 14:13?? ECG Data Attestation: I personally reviewed and interpreted this ECG as follows: Prior ECG tracings: not available for review Interpretation: Sinus rhythm rate 81 MT 160 QRS is 72 and QTC of 415. No acute ST elevation. Subtle depression in V4 5 6 1 mm at the most. No priors for comparison. EKG 2. Sinus rhythm rate of 65 MT 174 QRS is 72 QTC [address]. No acute ST elevation, Saint depression V4, 5 and 6 MDM Narrative Medical decision making narrative: This is a 67-year-old female presents with complaint of chest pressure or burning with radiation, patient has strong cardiac family history, she has not seen a physician recently. Patient has had some recent shortness of breath with exertion. Patient EKG has ST depression lateral leads no elevation appreciated. Chest x-ray, CBC, CMP, lipase and troponin were obtained, D-dimer was added on as patient is on oral estrogen twice weekly, no other risk factors for PE. Pat ient received aspirin and nitro sublingual. Patient was quite hypertensive on arrival 204/104 was starting to come down but nitro improved significantly. Chest pressure improved from 5/10 to 3/10 with 1 nitro sublingual, patient pain then fully resolved about an hour later return had additional nitro resolved had nitro paste placed. Repeat troponins have been negative. Repeat EKGs continue shows some subtle depression but no elevation. She had a CT angio no PE thoracic aorta is upper limits of normal but no obvious dissection. Patient's shows a creatinine 1.08 no priors for comparison LFTs are otherwise negative, BNP is negative, lipase is negative. Patient has a negative COVID. Spoke with Dr. Robertson,cardiology for [facility]. recommends heparin drip, aspirin, beta-sebastian, statin and if any persisting symptoms would start nitro drip. Discussed has nitro paste on currently and acceptable if continuing to be chest pain-free. Would recommend transfer to facility with catheterization capabilities. Patient continued to be chest pain-free here in the department. Patient is signed out to Dr. Garcia while awaiting call back from hospitalist at [facility], they have bed availability. Dr Garcia received turned over. For patient's history and physical. Patient continues to be chest pain-free. She is on a heparin drip. I did discuss the case with Dr. Johnston hospitalist at [facility] accepts the patient transport. Patient is stable for transport. <Raul Garcia, DO - Last Filed: 12/14/22 21:57> Lab Data Labs: Lab Results 12/14/22 12/14/22 12/14/22 Range/Units 11:20 12:20 12:20 WBC 8.6 (4.5-11.0) X10^3/uL RBC 4.36 (4.0-5.2) X10^6/uL Hgb 14.2 (12.0-16.0) g/dL Hct 41.7 (36-46) % MCV 95.6 (80-100) fL MCH 32.6 (26-34) PG MCHC 34.1 (30-36) % RDW 13.3 (11.6-14.8) % Plt Count 275 (150-400) X10^3/uL Neut % (Auto) 57.6 (50-75) % Lymph % (Auto) 29.9 (25-40) % [place] % (Auto) 9.0 (3-14) % Eos % (Auto) 2.1 (2-4) % Baso % (Auto) 1.4 (0-2) % Neut # (Auto) 5000 (7686-6233) /uL Lymph # (Auto) 2600 (1711-9583) /uL [place] # (Auto) 800 (0-900) /uL Eos # (Auto) 200 (0-450) /uL Baso # (Auto) 100 (0-100) /uL PT 11.1 (10.1-12.7) SECONDS INR 1.0 (0.9-1.3) APTT 29 (26-36) SECONDS D-Dimer 780 H (<500) ng/ml Sodium (137-145) mmol/L Potassium (3.4-5.1) mmol/L Chloride (98-107) mmol/L Carbon Dioxide (22-32) mmol/L BUN (7-17) mg/dL Creatinine (0.52-1.04) mg/dL Estimated GFR (>60) mL/min BUN/Creatinine Ratio (6-22) Glucose (80-110) mg/dL Calcium (8.4-10.2) mg/dL Magnesium (1.6-2.3) mg/dL Total Bilirubin (0.2-1.3) mg/dL AST (14-36) IU/L ALT (<35) IU/L Alkaline Phosphatase (38-126) U/L Total Creatine Kinase (30-135) U/L CK-MB (CK-2) CK-MB (CK-2) Rel Index Troponin I (0.01-0.034) ng/mL NT-Pro-B Natriuret Pep (<125) pg/mL Total Protein (6.3-8.2) g/dL Albumin (3.5-5.0) g/dL Globulin (1.7-4.1) g/dL Albumin/Globulin Ratio (1.0-2.8) Lipase (23-300) U/L Ur Bilirubin Confirm (Negative) Urine RBC (0-5/HPF) Urine WBC (0-5/HPF) Ur Squamous Epith Cells (0-5/HPF) Urine Bacteria (None) Ur Culture Indicated? SARS-CoV-2 (PCR) (Negative) 12/14/22 12/14/22 12/14/22 Range/Units 12:20 12:20 13:00 WBC (4.5-11.0) X10^3/uL RBC (4.0-5.2) X10^6/uL Hgb (12.0-16.0) g/dL Hct (36-46) % MCV (80-100) fL MCH (26-34) PG MCHC (30-36) % RDW (11.6-14.8) % Plt Count (150-400) X10^3/uL Neut % (Auto) (50-75) % Lymph % (Auto) (25-40) % [place] % (Auto) (3-14) % Eos % (Auto) (2-4) % Baso % (Auto) (0-2) % Neut # (Auto) (0770-3132) /uL Lymph # (Auto) (4375-9972) /uL [place] # (Auto) (0-900) /uL Eos # (Auto) (0-450) /uL Baso # (Auto) (0-100) /uL PT (10.1-12.7) SECONDS INR (0.9-1.3) APTT (26-36) SECONDS D-Dimer (<500) ng/ml Sodium 140 (137-145) mmol/L Potassium 3.4 (3.4-5.1) mmol/L Chloride 103 (98-107) mmol/L Carbon Dioxide 30 (22-32) mmol/L BUN 14 (7-17) mg/dL Creatinine 1.08 H (0.52-1.04) mg/dL Estimated GFR 56 L (>60) mL/min BUN/Creatinine Ratio 13.0 (6-22) Glucose 103 (80-110) mg/dL Calcium 9.3 (8.4-10.2) mg/dL Magnesium 2.0 (1.6-2.3) mg/dL Total Bilirubin 0.4 (0.2-1.3) mg/dL AST 33 (14-36) IU/L ALT 32 (<35) IU/L Alkaline Phosphatase 75 (38-126) U/L Total Creatine Kinase 246 H (30-135) U/L CK-MB (CK-2) TNP CK-MB (CK-2) Rel Index TNP Troponin I < 0.012 (0.01-0.034) ng/mL NT-Pro-B Natriuret Pep 42 (<125) pg/mL Total Protein 8.0 (6.3-8.2) g/dL Albumin 4.6 (3.5-5.0) g/dL Globulin 3.4 (1.7-4.1) g/dL Albumin/Globulin Ratio 1.4 (1.0-2.8) Lipase 117 (23-300) U/L Ur Bilirubin Confirm (Negative) Urine RBC (0-5/HPF) Urine WBC (0-5/HPF) Ur Squamous Epith Cells (0-5/HPF) Urine Bacteria (None) Ur Culture Indicated? SARS-CoV-2 (PCR) Negative (Negative) 12/14/22 12/14/22 12/14/22 Range/Units 14:40 15:34 15:34 WBC (4.5-11.0) X10^3/uL RBC (4.0-5.2) X10^6/uL Hgb (12.0-16.0) g/dL Hct (36-46) % MCV (80-100) fL MCH (26-34) PG MCHC (30-36) % RDW (11.6-14.8) % Plt Count (150-400) X10^3/uL Neut % (Auto) (50-75) % Lymph % (Auto) (25-40) % [place] % (Auto) (3-14) % Eos % (Auto) (2-4) % Baso % (Auto) (0-2) % Neut # (Auto) (6266-1314) /uL Lymph # (Auto) (2023-6704) /uL [place] # (Auto) (0-900) /uL Eos # (Auto) (0-450) /uL Baso # (Auto) (0-100) /uL PT (10.1-12.7) SECONDS INR (0.9-1.3) APTT (26-36) SECONDS D-Dimer (<500) ng/ml Sodium (137-145) mmol/L Potassium (3.4-5.1) mmol/L Chloride (98-107) mmol/L Carbon Dioxide (22-32) mmol/L BUN (7-17) mg/dL Creatinine (0.52-1.04) mg/dL Estimated GFR (>60) mL/min BUN/Creatinine Ratio (6-22) Glucose (80-110) mg/dL Calcium (8.4-10.2) mg/dL Magnesium (1.6-2.3) mg/dL Total Bilirubin (0.2-1.3) mg/dL AST (14-36) IU/L ALT (<35) IU/L Alkaline Phosphatase (38-126) U/L Total Creatine Kinase (30-135) U/L CK-MB (CK-2) CK-MB (CK-2) Rel Index Troponin I < 0.012 (0.01-0.034) ng/mL NT-Pro-B Natriuret Pep (<125) pg/mL Total Protein (6.3-8.2) g/dL Albumin (3.5-5.0) g/dL Globulin (1.7-4.1) g/dL Albumin/Globulin Ratio (1.0-2.8) Lipase (23-300) U/L Ur Bilirubin Confirm Negative (Negative) Urine RBC 0-1/hpf (0-5/HPF) Urine WBC 0-1/hpf (0-5/HPF) Ur Squamous Epith Cells 0-1 /hpf (0-5/HPF) Urine Bacteria None seen (None) Ur Culture Indicated? Cult not indicated SARS-CoV-2 (PCR) (Negative) 12/14/22 12/14/22 Range/Units 17:23 22:47 WBC (4.5-11.0) X10^3/uL RBC (4.0-5.2) X10^6/uL Hgb (12.0-16.0) g/dL Hct (36-46) % MCV (80-100) fL MCH (26-34) PG MCHC (30-36) % RDW (11.6-14.8) % Plt Count (150-400) X10^3/uL Neut % (Auto) (50-75) % Lymph % (Auto) (25-40) % [place] % (Auto) (3-14) % Eos % (Auto) (2-4) % Baso % (Auto) (0-2) % Neut # (Auto) (5257-1965) /uL Lymph # (Auto) (5755-3968) /uL [place] # (Auto) (0-900) /uL Eos # (Auto) (0-450) /uL Baso # (Auto) (0-100) /uL PT (10.1-12.7) SECONDS INR (0.9-1.3) APTT 25 L 94 H* D (26-36) SECONDS D-Dimer (<500) ng/ml Sodium (137-145) mmol/L Potassium (3.4-5.1) mmol/L Chloride (98-107) mmol/L Carbon Dioxide (22-32) mmol/L BUN (7-17) mg/dL Creatinine (0.52-1.04) mg/dL Estimated GFR (>60) mL/min BUN/Creatinine Ratio (6-22) Glucose (80-110) mg/dL Calcium (8.4-10.2) mg/dL Magnesium (1.6-2.3) mg/dL Total Bilirubin (0.2-1.3) mg/dL AST (14-36) IU/L ALT (<35) IU/L Alkaline Phosphatase (38-126) U/L Total Creatine Kinase (30-135) U/L CK-MB (CK-2) CK-MB (CK-2) Rel Index Troponin I (0.01-0.034) ng/mL NT-Pro-B Natriuret Pep (<125) pg/mL Total Protein (6.3-8.2) g/dL Albumin (3.5-5.0) g/dL Globulin (1.7-4.1) g/dL Albumin/Globulin Ratio (1.0-2.8) Lipase (23-300) U/L Ur Bilirubin Confirm (Negative) Urine RBC (0-5/HPF) Urine WBC (0-5/HPF) Ur Squamous Epith Cells (0-5/HPF) Urine Bacteria (None) Ur Culture Indicated? SARS-CoV-2 (PCR) (Negative) Urine Dip Bedside Urine Glucose Negative Bedside Urine Bilirubin + 1 Bedside Urine Ketone - Negative Urine Specific [place] 1.025 Bedside Urine Occult Blood - Negative Bedside Urine pH 6 Bedside Urine Protein +/- 15 Bedside Urine Urobilinogen - Negative Bedside Urine Nitrite - Negative Bedside Urine Leukocytes - Negative Esterase MDM Narrative Medical decision making narrative: This is a 67-year-old female presents with complaint of chest pressure or burning with radiation, patient has strong cardiac family history, she has not seen a physician recently. Patient has had some recent shortness of breath with exertion. Patient EKG has ST depression lateral leads no elevation appreciated. Chest x-ray, CBC, CMP, lipase and troponin were obtained, D-dimer was added on as patient is on oral estrogen twice weekly, no other risk factors for PE. Patient received aspirin and nitro sublingual. Patient was quite hypertensive on arrival 204/104 was starting to come down but nitro improved significantly. Chest pressure improved from 5/10 to 3/10 with 1 nitro sublingual, patient pain then fully resolved about an hour later return had additional nitro resolved had nitro paste placed. Repeat troponins have been negative. Repeat EKGs continue shows some subtle depression but no elevation. She had a CT angio no PE thoracic aorta is upper limits of normal but no obvious dissection. Patient's shows a creatinine 1.08 no priors for comparison LFTs are otherwise negative, BNP is negative, lipase is negative. Patient has a negative COVID. Spoke with Dr. Paliwal,cardiology for [facility]. recommends heparin drip, aspirin, beta-sebastian, statin and if any persisting symptoms would start nitro drip. Discussed has nitro paste on currently and acceptable if continuing to be chest pain-free. Would recommend transfer to facility with catheterization capabilities. Dr Garcia received turned over. For patient's history and physical. Patient continues to be chest pain-free. She is on a heparin drip. I did discuss the case with Dr. Johnston hospitalist at [facility] accepts the patient transport. Patient is stable for transport. Discharge Plan Departure Patient Disposition: [facility] Clinical Impression: Unstable angina, Hypertension Prescriptions: No Action levothyroxine 50 mcg tablet 50 mcg PO QAM estradiol 0.5 mg tablet 0.5 mg PO 3XW
[2022-12-14 12:33] LABS: Add Manual Diff / Slide Review NO; Basophils Absolute Auto 100 /uL (0-100); Basophils Percent Auto 1.4 % (0-2); Eosinophils Absolute Auto 200 /uL (0-450); Eosinophils Percent Auto 2.1 % (2-4); Hematocrit 41.7 % (36-46); Hemoglobin 14.2 g/dL (12.0-16.0); Lymphocytes Absolute Auto 2600 /uL (1100-4500); Lymphocytes Percent Auto 29.9 % (25-40); Mean Corpuscular HGB Conc 34.1 % (30-36); Mean Corpuscular Hemoglobin 32.6 PG (26-34); Mean Corpuscular Volume 95.6 fL (80-100); Monocytes Absolute Auto 800 /uL (0-900); Neutrophils Absolute Auto 5000 /uL (1500-7000); Neutrophils Percent Auto 57.6 % (50-75); Platelet Count 275 X10^3/uL (150-400); Red Blood Cell Count 4.36 X10^6/uL (4.0-5.2); Red Cell Distribution Width 13.3 % (11.6-14.8); White Blood Cell Count 8.6 X10^3/uL (4.5-11.0)
[2022-12-14 12:34] LABS: Prothrombin Time 11.1 SECONDS (10.1-12.7)
[2022-12-14 12:37] LABS: PTT Partial Thromboplastin Tim 29 SECONDS (26-36)
[2022-12-14 12:39] LABS: Alanine Aminotransferase 32 IU/L (<35); Albumin 4.6 g/dL (3.5-5.0); Albumin Globulin Ratio 1.4 (1.0-2.8); Alkaline Phosphatase 75 U/L (38-126); Aspartate Aminotransferase 33 IU/L (14-36); Bilirubin Total 0.4 mg/dL (0.2-1.3); Blood Urea Nitrogen 14 mg/dL (7-17); Calcium 9.3 mg/dL (8.4-10.2); Carbon Dioxide 30 mmol/L (22-32); Chloride 103 mmol/L (98-107); Creatine Kinase 246 U/L (30-135); Estimated Glomerular Filt Rate 56 mL/min (>60); Globulin 3.4 g/dL (1.7-4.1); Glucose 103 mg/dL (80-110); HEMOLYSIS 15 (0-50); Lipase 117 U/L (23-300); Potassium 3.4 mmol/L (3.4-5.1); Sodium 140 mmol/L (137-145)
[2022-12-14 12:49] LABS: Troponin I < 0.012 ng/mL (0.01-0.034)
[2022-12-14 12:52] LABS: D Dimer 780 ng/ml (<500)
--- NOTE | 2022-12-14 13:18 | DI.CT.S_ITS ---
PROCEDURE: CT ANGIO CHEST PE PROTOCOL INDICATIONS: chest pain, elevateddimer TECHNIQUE: After the administration of intravenous contrast, 2 mm thick sections acquired from the pulmonary apices to the posterior costophrenic angles. 3-dimensional maximum intensity projection (MIP) coronal and sagittal reformats were then acquired through the thorax. For radiation dose reduction, the following was used: automated exposure control, adjustment of mA and/or kV according to patient size. COMPARISON: None. FINDINGS: Image quality: Excellent. Pulmonary arteries: Pulmonary arteries are normal in size, and demonstrate no intraluminal filling defects to suggest central pulmonary embolism. Lungs and pleura: Lungs are clear. 4 mm pulmonary nodule, extreme right lung base, image 191/5. No pleural effusions or pneumothorax. Central and peripheral airways are patent. Mediastinum: Heart size is normal, without pericardial effusion. No mediastinal or hilar adenopathy. Thoracic aorta is top normal in caliber, measuring 4.0 cm. Esophagus is normal in caliber, without hiatal hernia. Bones and chest wall: No suspicious bony lesions. Ribs and thoracic spine appear intact throughout. Thyroid gland is unremarkable. No axillary or supraclavicular adenopathy. Abdomen: Visualized upper abdominal solid organs appear normal in the early arterial phase of enhancement. IMPRESSION: 1. No evidence acute pulmonary emboli. 2. No evidence acute pulmonary process. 3. Borderline aneurysmal dilatation of the ascending aorta, measuring 4.0 cm. 4. 4 mm pulmonary nodule, extreme right lung base. Please see chart below for follow-up recommendations. Fleischner Society criteria for SOLID lung nodule followup. Nodule size (mm)Low-risk patientHigh-risk patient<6 (single or multiple)No routine followup.Optional CT at 12 months. 6-8 (single or multiple)CT at 6-12 months, then optional CT at 18-24 mo.CT at 6-12 months, then CT at 18-24 months. >8 (single)CT at 3 months, PET-CT, or biopsy. Same as for low-risk pts. >8 (multiple)CT at 3-6 months, then optional CT at 18-24 mo.CT at 3-6 months, then CT at 18-24 months. Fleischner Society criteria for SUB-SOLID lung nodule followup. Solitary pure ground-glass nodules<6 mm (ground glass or part solid)No followup needed. 6 mm or larger (ground glass)CT at 6-12 months to confirm persistence, then CT every 2 years until 5 years.6 mm or larger (part solid)CT at 3-6 months to confirm persistence, then annual CT until 5 years if unchanged and solid component remains <6 mm. Multiple sub-solid nodules<6 mmCT at 3-6 months, then CT consider at 2 & 4 years for high risk patients. [address] at 3-6 months. Subsequent management based on most suspicious lesions. Recommendations do not apply to lung cancer screening, patients with immunosuppression, or patients with known primary cancer. Dictated by: Sukhwinder Joshua M.D. on 12/14/2022 at 14:08 Approved by: Sukhwinder Joshua M.D. on 12/14/2022 at 14:13
[2022-12-14 13:21] LABS: NT-proBNP (BNP-Adult 18+) 42 pg/mL (<125)
[2022-12-14 13:37] LABS: COVID19 -Nasal RAPID Negative (Negative)
[2022-12-14] MEDS: NITROGLYCERIN OINT 1 INCH/GM OINT...G. 0.5 INCH TOP (15:05)
[2022-12-14 15:17] LABS: Troponin I < 0.012 ng/mL (0.01-0.034)
[2022-12-14 16:37] LABS: Bacteria Urine None Seen; Culture Indicated Urine Cult Not Indicated; Ictotest Urine Negative (Negative); RBC Urine 0-1/HPF (0-5/HPF); Squamous Epithelial Cell Urine 0-1 /HPF (0-5/HPF); WBC Urine 0-1/HPF (0-5/HPF)
[2022-12-14] MEDS: ATORVASTATIN 20 MG TABLET 80 MG PO (17:25)
[2022-12-14] MEDS: HEPARIN 5,000 UNIT/ML VIAL 5000 UNIT IV (17:29)
[2022-12-14] MEDS: HEPARIN DRIP 25,000 UNIT/500 ML IV.SOLN 24.48 UNIT IV (17:30)
--- NOTE | 2022-12-14 17:45 | PC.NURSE ---
Heprin infusion lowered to 1000unit/hr which is the maximum amount per protocol. Provider notified.
[2022-12-14 17:51] LABS: PTT Partial Thromboplastin Tim 25 SECONDS (26-36)
--- NOTE | 2022-12-14 18:37 | PC.NURSE ---
Patient daughter Patricia took possession of 5 earrings and wedding ring of the patient per patient wishes.
[2022-12-14] MEDS: ACETAMINOPHEN 325 MG TABLET 975 MG PO (19:58)
[2022-12-14] MEDS: METOPROLOL IR 25 MG TABLET PO (22:10)
[2022-12-14 23:20] LABS: PTT Partial Thromboplastin Tim 94 SECONDS (26-36)
--- NOTE | 2022-12-15 00:41 | PC.NURSE ---
Accessed chart for [facility] pharmacist inquiring about medication dosages.
== END 2022-12-14 22:55 | disposition short-term general hospital (02) ==
PROVIDERS: Emergency Medicine; Emergency Provider Emergency Medicine
DX: I20.0 Unstable angina (principal); I10 Essential (primary) hypertension
CPT/HCPCS: 36415; 71045; 71275; 80053; 81003; 81015; 82550; 83690; 83735; 83880; 84484; 85025; 85379; 85610; 85730; 87635; 93005; 93010; 96374; 99284; C9803; J1644

== ENCOUNTER → 2023-01-18 12:18 | Outpatient (CLI) | payer MEDICARE, SELFPAY ==
--- NOTE | 2023-01-18 13:07 | DI.RAD.S_ITS ---
PROCEDURE: XR HAND RT MIN 3V INDICATIONS: arthritis, rule out crystals, ortheoarthritic changes TECHNIQUE: 3 views of the hand(s) acquired. COMPARISON: None. FINDINGS: Bones: No fractures or dislocations. Carpal bones are normally aligned. No suspicious bony lesions. Severe degenerative arthritis at the base of the thumb with severe joint space loss and large osteophytes at the 1st carpometacarpal joint. Mild degenerative arthritis at the triscaphe joint. Soft tissues: No suspicious soft tissue calcifications. IMPRESSION: Severe degenerative arthritis at the 1st carpometacarpal joint. Mild degenerative arthritis at the triscaphe joint. Dictated by: Sukhwinder Joshua M.D. on 01/18/2023 at 18:35 Approved by: Sukhwinder Joshua M.D. on 01/18/2023 at 18:36
[2023-01-18 13:54] LABS: Add Manual Diff / Slide Review NO; Basophils Absolute Auto 100 /uL (0-100); Basophils Percent Auto 1.2 % (0-2); Eosinophils Absolute Auto 100 /uL (0-450); Eosinophils Percent Auto 1.2 % (2-4); Hemoglobin 14.1 g/dL (12.0-16.0); Lymphocytes Absolute Auto 2000 /uL (1100-4500); Lymphocytes Percent Auto 25.7 % (25-40); Mean Corpuscular HGB Conc 33.5 % (30-36); Mean Corpuscular Hemoglobin 32.4 PG (26-34); Mean Corpuscular Volume 96.5 fL (80-100); Monocytes Absolute Auto 600 /uL (0-900); Monocytes Percent Auto 7.5 % (3-14); Neutrophils Absolute Auto 5000 /uL (1500-7000); Neutrophils Percent Auto 64.4 % (50-75); Platelet Count 268 X10^3/uL (150-400); Red Blood Cell Count 4.35 X10^6/uL (4.0-5.2); White Blood Cell Count 7.7 X10^3/uL (4.5-11.0)
[2023-01-18 14:06] LABS: Erythrocyte Sedimentation Rate 11 MM/HR (0-20)
[2023-01-18 14:27] LABS: Alanine Aminotransferase 33 IU/L (<35); Albumin 4.5 g/dL (3.5-5.0); Albumin Globulin Ratio 1.5 (1.0-2.8); Alkaline Phosphatase 89 U/L (38-126); Aspartate Aminotransferase 31 IU/L (14-36); BUN Creatinine Ratio 13.5 (6-22); Bilirubin Total 0.4 mg/dL (0.2-1.3); Blood Urea Nitrogen 15 mg/dL (7-17); C-Reactive Protein Quant < 0.5 mg/dL (<1.0); Calcium 9.5 mg/dL (8.4-10.2); Carbon Dioxide 30 mmol/L (22-32); Chloride 102 mmol/L (98-107); Creatine Kinase 208 U/L (30-135); Estimated Glomerular Filt Rate 54 mL/min (>60); Globulin 3.1 g/dL (1.7-4.1); Glucose 104 mg/dL (80-110); HEMOLYSIS < 15 (0-50); Potassium 4.5 mmol/L (3.4-5.1); Sodium 140 mmol/L (137-145); Total Protein 7.6 g/dL (6.3-8.2)
[2023-01-18 14:28] LABS: Rheumatoid Factor < 8.6 IU/mL (<12.0)
[2023-01-18 14:46] LABS: TSH w/ Reflex to FT4 1.41 uIU/mL (0.47-4.68)
[2023-01-19 08:39] LABS: x Labcorp Estim. Avg Glu (eAG) 114 mg/dL (.); x Labcorp Hemoglobin A1c 5.6 % (4.8-5.6)
[2023-01-22 13:55] LABS: ANA Screen, IFA Negative (.)
== END ==
PROVIDERS: PCP Pediatrics; Referring Provider Pediatrics; Visit Provider Pediatrics
DX: I10 Essential (primary) hypertension (principal); M79.10 Myalgia, unspecified site; R06.02 Shortness of breath; M19.90 Unspecified osteoarthritis, unspecified site
CPT/HCPCS: 73130; 80053; 82550; 83036; 84443; 85025; 85651; 86038; 86140; 86430

== ENCOUNTER → 2023-09-21 08:33 | Outpatient (CLI) | payer MEDICARE, SELFPAY ==
[2023-09-21 09:53] LABS: Hemoglobin A1C% w Est Avg Glu 5.5 % (4.0-6.0)
[2023-09-21 10:26] LABS: TSH w/ Reflex to FT4 2.25 uIU/mL (0.47-4.68)
[2023-09-21 13:59] LABS: Alanine Aminotransferase 35 IU/L (<35); Albumin 4.1 g/dL (3.5-5.0); Albumin Globulin Ratio 1.3 (1.0-2.8); Alkaline Phosphatase 75 U/L (38-126); Aspartate Aminotransferase 37 IU/L (14-36); BUN Creatinine Ratio 12.9 (6-22); Bilirubin Total 0.6 mg/dL (0.2-1.3); Blood Urea Nitrogen 13 mg/dL (7-17); Calcium 9.6 mg/dL (8.4-10.2); Carbon Dioxide 28 mmol/L (22-32); Chloride 110 mmol/L (98-107); Cholesterol 244 mg/dL (140-199); Estimated Glomerular Filt Rate 60 mL/min (>60); Globulin 3.1 g/dL (1.7-4.1); Glucose 106 mg/dL (80-110); HDL Cholesterol 53 mg/dL (40-60); HEMOLYSIS < 15 (0-50); LDL Cholesterol Calculated 161 mg/dL (<100); Potassium 4.7 mmol/L (3.4-5.1); Sodium 143 mmol/L (137-145); Total Protein 7.2 g/dL (6.3-8.2); Triglycerides 152 mg/dL (35-150)
== END ==
LOC: LAB 08:34
PROVIDERS: PCP Family Medicine; Referring Provider Family Medicine; Visit Provider Family Medicine
DX: Z13.1 Encounter for screening for diabetes mellitus (principal); E05.90 Thyrotoxicosis, unspecified without thyrotoxic crisis or storm
CPT/HCPCS: 36415; 80053; 80061; 83036; 84443

== ENCOUNTER → 2024-01-25 08:28 | Outpatient (CLI) | payer MEDICARE, SELFPAY ==
[2024-01-25 09:29] LABS: Hemoglobin A1C% w Est Avg Glu 5.6 % (4.0-6.0)
[2024-01-25 09:53] LABS: Free T4, Direct Thyroxine 1.18 ng/dL (0.78-2.19)
[2024-01-25 10:19] LABS: Vitamin B12 Reflex MMA if <400 826 pg/mL (239-931)
== END ==
LOC: LAB 08:30
PROVIDERS: PCP Family Medicine; Referring Provider Family Medicine; Visit Provider Family Medicine
DX: G62.9 Polyneuropathy, unspecified (principal)
CPT/HCPCS: 36415; 82607; 83036; 84155; 84165; 84439; 84443

== ENCOUNTER → 2024-04-04 11:34 | Outpatient (CLI) | payer MEDICARE, SELFPAY ==
--- NOTE | 2024-04-04 11:36 | DI.MG.S_ITS ---
BILATERAL DIGITAL SCREENING MAMMOGRAM 3D/2D WITH CAD: 04/04/2024 No prior exams were available for comparison. There are scattered areas of fibroglandular density (category b / 25%-50% glandular tissue). Current study was also evaluated with a Computer Aided Detection (CAD) system. There is a focal asymmetry in the right breast at 2 o'clock posterior depth. There is an asymmetry in the left breast posterior depth superior region seen on the mediolateral oblique view only. No other significant masses or calcifications are seen in either breast. IMPRESSION: INCOMPLETE: NEED ADDITIONAL IMAGING EVALUATION The focal asymmetry in the right breast at 2 o'clock posterior depth is indeterminate. Additional views with possible ultrasound are recommended. The asymmetry in the left breast posterior depth superior region seen on the mediolateral oblique view only is indeterminate. Additional views with possible ultrasound are recommended. Based on the Tyrer Cuzick model (a risk assessment model) the patient's lifetime risk is 3.7% and her 10 year risk is 2.6%. According to the ACR, ACS, and NCCN guidelines, an annual breast MRI exam along with mammogram is recommended if the patient's lifetime risk is 20% or greater. This exam was interpreted at Station ID: [id number]. NOTE: For mammograms, a report in lay terms will be sent to the patient. Approximately 15% of breast malignancies will not be visualized mammographically. In the management of a palpable breast mass, a negative mammogram must not discourage biopsy of a clinically suspicious lesion. Electronically Signed By: Pelon allen/lashonda:04/14/2024 15:01:47 letter sent: Additional Imaging Needed ACR BI-RADS Category 0: Incomplete: Need Additional Imaging Evaluation
== END ==
LOC: MAMMO 11:35
PROVIDERS: PCP Family Medicine; Referring Provider Family Medicine; Visit Provider Family Medicine
DX: Z12.31 Encounter for screening mammogram for malignant neoplasm of breast (principal)
CPT/HCPCS: 77063; 77067

== ENCOUNTER → 2024-05-14 11:37 | Outpatient (CLI) | payer MEDICARE, SELFPAY ==
--- NOTE | 2024-05-14 11:38 | DI.MG.S_ITS ---
BILATERAL DIGITAL DIAGNOSTIC MAMMOGRAM 3D/2D WITH ADDITIONAL VIEWS: 05/14/2024 CLINICAL: Additional evaluation requested from prior study. Comparison is made to exam dated: 04/04/2024 mammogram - [facility]. There are scattered areas of fibroglandular density (category b / 25%-50% glandular tissue). There is an oval focal asymmetry in the right breast at 2 o'clock posterior depth. No architectural distortion in this region. There is a benign asymmetry in the left breast posterior depth superior region seen on the mediolateral oblique view only. This is not seen in additional views. No other significant masses or calcifications are seen in either breast. IMPRESSION: INCOMPLETE: NEED ADDITIONAL IMAGING EVALUATION The focal asymmetry in the right breast at 2 o'clock posterior depth resembles a lymph node and is indeterminate. A targeted ultrasound is recommended and will immediately follow. Based on the Tyrer Cuzick model (a risk assessment model) the patient's lifetime risk is 3.7% and her 10 year risk is 2.6%. According to the ACR, ACS, and NCCN guidelines, an annual breast MRI exam along with mammogram is recommended if the patient's lifetime risk is 20% or greater. This exam was interpreted at Station ID: [id number]. NOTE: For mammograms, a report in lay terms will be sent to the patient. Approximately 15% of breast malignancies will not be visualized mammographically. In the management of a palpable breast mass, a negative mammogram must not discourage biopsy of a clinically suspicious lesion. Electronically Signed By: William Cee M.D. slc/:05/14/2024 12:40:12 letter sent: Additional Imaging Needed ACR BI-RADS Category 0: Incomplete: Need Additional Imaging Evaluation
--- NOTE | 2024-05-14 11:38 | DI.US.S_ITS ---
LIMITED ULTRASOUND OF RIGHT BREAST: 05/14/2024 CLINICAL: Patient returns today to evaluate a focal asymmetry in the right breast. Comparison is made to exams dated: 05/14/2024 mammogram and 04/04/2024 mammogram - [facility]. Real-time ultrasound of the right breast 12-4 o'clock region was performed. Randhawa scale images of the real-time examination were reviewed. No significant abnormalities were seen sonographically in the right breast. IMPRESSION: PROBABLY BENIGN No ultrasound correlate for the focal asymmetry seen on mammogram. This could represent a small lymph node. A follow-up mammogram and possible ultrasound in 6 months is recommended to demonstrate stability. Exam findings were conveyed to the patient. This exam was interpreted at Station ID: [id number]. Electronically Signed By: William Cee M.D. slc/:05/14/2024 14:53:19 letter sent: Followup Recommended ACR BI-RADS Category 3: Probably Benign
== END ==
PROVIDERS: PCP Family Medicine; Referring Provider Family Medicine; Visit Provider Family Medicine
DX: R92.8 Other abnormal and inconclusive findings on diagnostic imaging of breast (principal)
CPT/HCPCS: 76642; 77066; G0279

== ENCOUNTER → 2024-06-19 10:10 | Outpatient (CLI) | payer MEDICARE, SELFPAY ==
--- NOTE | 2024-06-19 10:11 | DI.US.S_ITS ---
PROCEDURE: US ARTERIAL DUPLEX LE LT INDICATIONS: possible ischemic 2nd toe TECHNIQUE: Color and pulse Doppler interrogation was performed of the left lower extremity arterial system, with image documentation. COMPARISON: None. FINDINGS: Common femoral artery: 158 cm/sec, with triphasic flow. Deep femoral artery: 126 cm/sec, with triphasic flow. Proximal superficial femoral artery: 140 cm/sec, with triphasic flow. Mid superficial femoral artery: 133 cm/sec, with triphasic flow. Distal superficial femoral artery: 126 cm/sec, with triphasic flow. Popliteal artery: 77 cm/sec, with triphasic flow. Posterior tibial artery: 112 cm/sec, with triphasic flow. Anterior tibial artery/dorsalis pedis: 61 cm/sec, with triphasic flow. Randhawa-scale imaging description: Mild atherosclerotic disease present. Edema is present along the dorsal foot. No subcutaneous gas. IMPRESSION: No hemodynamically significant stenosis in the large vessels of the left lower extremity. Ischemia could be related to microvascular disease. Dictated by: Max Perea M.D. on 06/19/2024 at 11:10 Approved by: Max Perea M.D. on 06/19/2024 at 11:12
== END ==
PROVIDERS: PCP Family Medicine; Referring Provider Student in an Organized Health Care Education/Training Program; Visit Provider Student in an Organized Health Care Education/Training Program
DX: M79.675 Pain in left toe(s) (principal); L81.9 Disorder of pigmentation, unspecified
CPT/HCPCS: 93926

== ENCOUNTER → 2024-06-25 15:31 | Outpatient (CLI) | payer MEDICARE, SELFPAY ==
[2024-06-25 18:06] LABS: Add Manual Diff / Slide Review NO; Basophils Absolute Auto 100 /uL (0-100); Basophils Percent Auto 1.3 % (0-2); Eosinophils Absolute Auto 200 /uL (0-450); Eosinophils Percent Auto 1.9 % (2-4); Hematocrit 43.2 % (36-46); Hemoglobin 14.4 g/dL (12.0-16.0); Lymphocytes Absolute Auto 2900 /uL (1100-4500); Lymphocytes Percent Auto 34.8 % (25-40); Mean Corpuscular HGB Conc 33.4 % (30-36); Mean Corpuscular Hemoglobin 32.3 PG (26-34); Mean Corpuscular Volume 96.9 fL (80-100); Monocytes Absolute Auto 500 /uL (0-900); Monocytes Percent Auto 6.6 % (3-14); Neutrophils Absolute Auto 4600 /uL (1500-7000); Neutrophils Percent Auto 55.4 % (50-75); Platelet Count 295 X10^3/uL (150-400); Red Blood Cell Count 4.46 X10^6/uL (4.0-5.2); White Blood Cell Count 8.3 X10^3/uL (4.5-11.0)
[2024-06-25 18:14] LABS: Uric Acid 5.3 mg/dL (2.5-6.2)
== END ==
PROVIDERS: PCP Family Medicine; Referring Provider Family Medicine; Visit Provider Family Medicine
DX: M79.675 Pain in left toe(s) (principal)
CPT/HCPCS: 36415; 84550; 85025

== ENCOUNTER 2024-11-04 08:51 | Day surgery (SDC) | payer MEDICARE, SELFPAY ==
[2024-11-04 09:13] VITALS: BP 141/67; PULSE 76; RESP 16; TEMP 36.2; O2SAT 98
--- NOTE | 2024-11-04 09:18 | P.HP_ITS ---
History of Present Illness History of Present Illness Chief complaint: Screening Colonoscopy Narrative: History of polyps follow-up screening colonoscopy [facility] Medical History Hyperlipidemia Peripheral neuropathy Dupuytrens contracture Otomycosis Mumps Measles Chicken pox Hyperthyroidism (~2003) Adverse effect of statin Osteoarthritis Arthralgia Myalgia Surgical History History of section (06/10/72) Anesthesia History of surgery (~2018) History of total hysterectomy (~2000) History of breast augmentation (~1987) History of section Family History Father Diabetes mellitus History of heart disease Hypertension Mother Cancer Hyperlipidemia Hypertension Stroke Brother Diabetes mellitus History of heart disease Hypertension Hyperlipidemia Brother Suicide Grandmother Stroke Social History second hand exposure: No alcohol intake: current substance use type: does not use Meds Home Medications and Allergies Home Medications Medication Instructions Recorded Confirmed Type aspirin 81 mg tablet,delayed 81 mg PO DAILY 01/18/23 11/04/24 History release hydrocortisone-acetic acid 1 %-2 % 5 drp otic (ear) Q6H #10 mL 01/31/24 11/04/24 Rx ear drops cyclobenzaprine 10 mg tablet 10 mg PO Q8H PRN for muscle spasm 02/04/24 11/04/24 Rx #30 tabs levothyroxine 50 mcg tablet 50 mcg PO QAM #90 tabs 02/04/24 11/04/24 Rx losartan 50 mg tablet 50 mg PO DAILY #90 tabs 07/16/24 11/04/24 Rx pravastatin 40 mg tablet 40 mg PO DAILY #90 tabs 07/16/24 11/04/24 Rx gabapentin 600 mg tablet 600 mg PO 3XD #300 tabs 08/05/24 11/04/24 Rx sodium,potassium,mag sulfates 17.5 See Rx Instructions PO .COMPLEX 10/14/24 Rx gram-3.13 gram-1.6 gram oral soln #354 mL (Suprep Bowel Prep Kit) Allergies Allergy/AdvReac Type Severity Reaction Status Date / Time Latex, Natural Rubber Allergy Verified 11/04/24 09:09 Exam Narrative Exam Narrative: Oropharynx free of lesions Chest clear to auscultation percussion Cardiac exam reveals no S3 or murmur Assessment & Plan Assessment & Plan narrative: History of polyps follow-up screening colonoscopy. Risks, benefits, alternatives have been explained. Time-Based Coding :: [TOTAL MINUTES] spent with patient and on the chart (including review of chart, obtaining history, exam, reviewing outside data, placing orders, documenting exam and treatment plan, and counseling patient) on [DATE]. [employer] Document charge(s): No
--- NOTE | 2024-11-04 09:18 | PM.OP.COLON ---
Procedure & Clinicians Study performed: Colonoscopy Same procedure as scheduled: Yes Indications: History of polyps Surgeon: Vicenta Patel Procedure Notes Procedure in detail: After informed consent was obtained the patient was placed in left lateral decubitus position. The video colonoscope was placed in the rectum slowly advanced cecum. Preparation was good. On slow withdrawal mucosa was carefully examined. The scope was removed. The patient tolerated the procedure well. Blood loss none Complications none Sedation mac Findings 1. Normal colonoscopy to cecum Patient should have follow-up colonoscopy in 5 years
[2024-11-04] MEDS: LACTATED RINGERS 1,000 ML 42 ML IV (09:33)
[2024-11-04 10:13] VITALS: BP 100/53; PULSE 63; RESP 15; TEMP 36.4; O2SAT 98
[2024-11-04 10:22] VITALS: BP 114/65; PULSE 70; RESP 15; TEMP 36.4; O2SAT 99
== END 2024-11-04 10:27 | disposition home or self-care (01) ==
PROVIDERS: PCP Family Medicine; Referring Provider Internal Medicine Gastroenterology; Visit Provider Internal Medicine Gastroenterology
PROC: 0DJD8ZZ Inspection of Lower Intestinal Tract, Via Natural or Artificial Opening Endoscopic (ICD-10-PCS; CPT 45378; principal; 2024-11-04 10:00)
DX: Z12.11 Encounter for screening for malignant neoplasm of colon (principal); Z86.0100 Personal history of colon polyps, unspecified
CPT/HCPCS: G0105; J2704

== ENCOUNTER → 2025-02-01 08:32 | Outpatient (CLI) | payer MEDICARE, SELFPAY ==
[2025-02-01 10:32] LABS: Hemoglobin A1C% w Est Avg Glu 4.9 % (4.0-6.0)
[2025-02-01 11:43] LABS: Alanine Aminotransferase 22 IU/L (<35); Albumin 4.3 g/dL (3.5-5.0); Albumin Globulin Ratio 1.5 (1.0-2.8); Alkaline Phosphatase 69 U/L (38-126); Blood Urea Nitrogen 11 mg/dL (7-17); Calcium 9.3 mg/dL (8.4-10.2); Carbon Dioxide 27 mmol/L (22-32); Chloride 105 mmol/L (98-107); Cholesterol 183 mg/dL (140-199); Estimated Glomerular Filt Rate 58 mL/min (>60); Globulin 2.9 g/dL (1.7-4.1); Glucose 74 mg/dL (70-99); HDL Cholesterol 48 mg/dL (40-60); HEMOLYSIS < 15 (0-50); Potassium 3.8 mmol/L (3.4-5.1); Sodium 141 mmol/L (137-145); Total Protein 7.2 g/dL (6.3-8.2); Triglycerides 171 mg/dL (35-150)
[2025-02-01 12:11] LABS: TSH w/ Reflex to FT4 1.83 uIU/mL (0.47-4.68)
== END ==
PROVIDERS: PCP Family Medicine; Referring Provider Family Medicine; Visit Provider Family Medicine
DX: R79.89 Other specified abnormal findings of blood chemistry (principal); I10 Essential (primary) hypertension; E05.90 Thyrotoxicosis, unspecified without thyrotoxic crisis or storm; E78.5 Hyperlipidemia, unspecified; E03.9 Hypothyroidism, unspecified; Z13.1 Encounter for screening for diabetes mellitus
CPT/HCPCS: 36415; 80053; 80061; 83036; 84443

== ENCOUNTER → 2025-04-06 08:34 | Outpatient (CLI) | payer MEDICARE, SELFPAY ==
--- NOTE | 2025-04-06 08:36 | DI.US.S_ITS ---
PROCEDURE: US SOFT TISSUE HEAD AND NECK INDICATIONS: L submandibular node enlargemen and pain. t TECHNIQUE: Real-time scanning was performed of the neck region of interest, with image documentation. COMPARISON: None. FINDINGS: No sonographic abnormality identified in the region of clinical interest at the left submandibular neck. No lymph node enlargement demonstrated. IMPRESSION: No sonographic abnormality demonstrated. Dictated by: Leigh Galan MD, PhD on 04/06/2025 at 12:28 Approved by: Leigh Galan MD, PhD on 04/06/2025 at 12:29
== END ==
PROVIDERS: PCP Family Medicine; Referring Provider Family Medicine; Visit Provider Family Medicine
DX: R59.1 Generalized enlarged lymph nodes (principal)
CPT/HCPCS: 76536